=== PATIENT | female | born 1935 | race Caucasian/White ===

== ENCOUNTER 2019-12-14 13:15 | Observation (INO) | payer MEDICARE, BC ==
[2019-12-14] VITALS (8 sets, daily range): BP systolic 99–225; BP diastolic 42–103
[~2019-12-14] VITALS: Ht 157.5 cm; Wt 55.0 kg
[2019-12-14 14:04] LABS: BASOPHILS 0.5 % (0-2); EOSINOPHILS 1.3 % (0-7); HEMATOCRIT 37.6 % (36.0-48.0); HEMOGLOBIN 12.5 g/dL (12-16); IMMATURE GRANULOCYTES 0.1 % (0-5); LYMPHOCYTES 38.2 % (15-50); MCHC 33.2 g/dL (31.0-37.0); MCV 90.4 fL (80.0-100.0); MONOCYTES 7.1 % (2-11); NEUTROPHILS 52.8 % (40-80); PLATELET COUNT 210 10x3/uL (130-400); RBC 4.16 10x6/uL (4.00-5.40); RDW 13.2 % (11.5-14.5); WBC 7.9 10x3/uL (4.8-10.8)
[2019-12-14 14:13] LABS: APTT 28.7 SECONDS (22.8-39.4); PROTIME 13.1 SECONDS (11.6-15.0)
[2019-12-14 14:17] LABS: CALC OSMOLALITY 278 mosm/kg (275-300); CALCIUM 9.4 mg/dL (8.5-10.1); CARBON DIOXIDE 26.2 mmol/L (21.0-32.0); CHLORIDE - SERUM 104 mmol/L (98-107); CREATININE - SERUM 1.1 mg/dL (0.6-1.3); GLUCOSE 103 mg/dL (74-106); POTASSIUM - SERUM 3.4 mmol/L (3.5-5.1); SODIUM 140 mmol/L (136-145); UREA NITROGEN 12 mg/dL (7-18); eGFR NON AFRICAN AMERICAN 50 mL/min (90-120)
[2019-12-14 15:05] LABS: ALBUMIN 4.2 g/dL (3.4-5.0); ALKALINE PHOSPHATASE 78 U/L (30-120); ALT (SGPT) 13 U/L (10-68); BILIRUBIN - TOTAL 0.33 mg/dL (0.2-1.3); CKMB 1.4 U/L (0.0-3.6); CREATINE KINASE 131 UL (21-215); PROTEIN - SERUM 8.3 g/dL (6.4-8.2)
[2019-12-14 15:25] LABS: TROPONIN-I 0.018 ng/mL (0.000-0.060)
[2019-12-14 17:22] LABS: BILIRUBIN NEGATIVE (NEGATIVE); KETONE NEGATIVE (NEGATIVE); NITRITE NEGATIVE (NEGATIVE); UROBILINOGEN NORMAL mg/dL (< 2)
[2019-12-14 23:28] LABS: CKMB 1.9 U/L (0.0-3.6); CREATINE KINASE 112 UL (21-215); TROPONIN-I < 0.017 ng/mL (0.000-0.060)
[2019-12-15 01:00] VITALS: BP 112/52
--- NOTE | 2019-12-15 01:00 | NUR ---
REPORT FROM SUNITA RAZO. PT RESTING IN [facility]. DAUGHTER AT BEDSIDE.
[2019-12-15 02:00] VITALS: BP 150/64
[2019-12-15 02:57] LABS: BASOPHILS 0.5 % (0-2); HEMOGLOBIN 10.7 g/dL (12-16); IMMATURE GRANULOCYTES 0.2 % (0-5); LYMPHOCYTES 47.5 % (15-50); MCHC 33.4 g/dL (31.0-37.0); MCV 89.6 fL (80.0-100.0); MEAN PLATELET VOLUME 11.1 fL (7.4-10.4); NEUTROPHILS 37.8 % (40-80); PLATELET COUNT 198 10x3/uL (130-400); RBC 3.57 10x6/uL (4.00-5.40); RDW 13.3 % (11.5-14.5); WBC 6.2 10x3/uL (4.8-10.8)
[2019-12-15 03:00] VITALS: BP 141/57
--- NOTE | 2019-12-15 03:00 | NUR ---
PT RESTING IN [facility] PT HAD UNHOOKED MONITOR. HELPED PLACE LEADS BACK. DENIES COMPLAINTS.
[2019-12-15 03:01] LABS: APTT 27.4 SECONDS (22.8-39.4); INR 1.04 (0.85-1.17); PROTIME 13.5 SECONDS (11.6-15.0)
[2019-12-15 03:20] LABS: ALBUMIN 3.2 g/dL (3.4-5.0); ALKALINE PHOSPHATASE 65 U/L (30-120); ALT (SGPT) 13 U/L (10-68); BILIRUBIN - TOTAL 0.18 mg/dL (0.2-1.3); CALC OSMOLALITY 276 mosm/kg (275-300); CALCIUM 8.7 mg/dL (8.5-10.1); CHLORIDE - SERUM 105 mmol/L (98-107); CKMB 1.2 U/L (0.0-3.6); CREATINE KINASE 98 UL (21-215); CREATININE - SERUM 1.2 mg/dL (0.6-1.3); GLUCOSE 100 mg/dL (74-106); POTASSIUM - SERUM 3.3 mmol/L (3.5-5.1); PROTEIN - SERUM 6.6 g/dL (6.4-8.2); SODIUM 138 mmol/L (136-145); TROPONIN-I < 0.017 ng/mL (0.000-0.060); UREA NITROGEN 15 mg/dL (7-18); eGFR NON AFRICAN AMERICAN 45 mL/min (90-120)
[2019-12-15 04:00] VITALS: BP 130/54
[2019-12-15 05:00] VITALS: BP 131/54
[2019-12-15 06:00] VITALS: BP 136/58
[2019-12-15 08:45] VITALS: Ht 157.5 cm; Wt 55.0 kg
[2019-12-15 09:23] LABS: CKMB 1.1 U/L (0.0-3.6); CREATINE KINASE 97 UL (21-215); TROPONIN-I < 0.017 ng/mL (0.000-0.060)
--- NOTE | 2019-12-15 09:35 | NUR ---
NOTIFIED [facility] OF CONSULT VIA CARDIOLOGY PAGER
[2019-12-15] MEDS ORDERED: LISINOPRIL10 MG PO (10:17)
== END 2019-12-15 10:30 | disposition home or self-care (01) ==
LOC: D.ER 13:15 → D.EDHOLD 18:55 → OBSVTIME 18:55 → D.EDHOLD 18:55
PROVIDERS: Family Medicine; ADMIT Family Medicine; ATTEND Family Medicine
DX: I16.9 Hypertensive crisis, unspecified (principal); E87.6 Hypokalemia